=== PATIENT | male | born 1955 | race Caucasian/White ===

== ENCOUNTER 2021-06-01 07:14 | Day surgery (SDC) | payer BC, OTHER ==
[2021-06-01] MEDS ORDERED: fentaNYL 250 MCG/5 ML SDV ONE (08:10)
[2021-06-01] MEDS ORDERED: Propofol 200 MG/20 ML SDV ONE (08:10)
[2021-06-01] MEDS ORDERED: Bupivacaine 0.5% 10 ML SDV ONE (08:38)
[2021-06-01] MEDS ORDERED: Lidocaine 1% 20 ML MDV ONE (08:38)
[2021-06-01] MEDS ORDERED: ceFAZolin 2 GM in Premix Bag 1 BAG IV ONE (09:00)
[2021-06-01] MEDS ORDERED: Lactated Ringers 1,000 ML IV SCH (09:00)
[2021-06-01] MEDS ORDERED: Ketamine 500 mg/10 ML MDV ONE (09:49)
[2021-06-01] MEDS ORDERED: Morphine 2 MG/ML SYRINGE IVPUSH PRN (10:05)
[2021-06-01] MEDS ORDERED: Albuterol 0.083% 2.5 MG/3 ML Neb Soln NEB PRN (10:05)
[2021-06-01] MEDS ORDERED: Naloxone 0.4 MG/ML SDV IVPUSH PRN (10:05)
[2021-06-01] MEDS ORDERED: HYDROmorphone 1 MG/ML Syringe IVPUSH PRN (10:05)
[2021-06-01] MEDS ORDERED: fentaNYL 100 MCG/2 ML SDV IVPUSH PRN (10:05)
[2021-06-01] MEDS ORDERED: Metoclopramide 10 MG/2 ML SDV IVPUSH PRN (10:05)
[2021-06-01] MEDS ORDERED: Ondansetron 4 MG/2 ML SDV IVPUSH PRN (10:05)
[2021-06-01] MEDS ORDERED: Glycopyrrolate 0.2 MG/ML SDV ONE (10:49)
[2021-06-01] MEDS ORDERED: Dexamethasone 4 MG/ML 5 ML MDV ONE (10:49)
[2021-06-01] MEDS ORDERED: ePHEDrine 50 MG/ML SDV ONE (10:49)
[2021-06-01] MEDS ORDERED: Ondansetron 4 MG/2 ML SDV ONE (10:49)
[2021-06-01] MEDS ORDERED: Ketorolac 30 MG/ML SDV ONE (10:49)
[2021-06-01] MEDS ORDERED: Albuterol HFA 18 Gm Inhaler ONE (10:54)
[2021-06-01] MEDS ORDERED: HYDROmorphone 2 MG/ML Syringe ONE (11:22)
== END 2021-06-01 14:50 | disposition home or self-care (01) ==
LOC: MW.SDS 07:14
PROVIDERS: ATTEND Podiatrist Foot & Ankle Surgery
DX: S86.312A Strain of muscle(s) and tendon(s) of peroneal muscle group at lower leg level, left leg, initial encounter (principal); E11.40 Type 2 diabetes mellitus with diabetic neuropathy, unspecified; G47.30 Sleep apnea, unspecified; I45.10 Unspecified right bundle-branch block; K21.9 Gastro-esophageal reflux disease without esophagitis; I10 Essential (primary) hypertension; Z01.812 Encounter for preprocedural laboratory examination; Z20.822 Contact with and (suspected) exposure to COVID-19; Z79.4 Long term (current) use of insulin; Z79.84 Long term (current) use of oral hypoglycemic drugs; Z79.899 Other long term (current) drug therapy
CPT/HCPCS: 28200; 76000; 82947; 87635; J0131; J0690; J1100; J1170; J1885; J2370; J2405; J2704; J3010; J3490; J7120; 01470; J3535-GY; U0002

== ENCOUNTER 2022-03-08 07:55 | Day surgery (SDC) | payer BC, OTHER ==
[~2022-03-08 07:55] MED LIST: Bupivacaine 0.5% 30 ML SDV ONE; Lactated Ringers 1,000 ML IV SCH; Lidocaine 1% 20 ML MDV ONE
[2022-03-08] MEDS ORDERED: Ondansetron 4 MG/2 ML SDV IVPUSH PRN (09:33)
[2022-03-08] MEDS ORDERED: Albuterol 0.083% 2.5 MG/3 ML Neb Soln NEB PRN (09:33)
[2022-03-08] MEDS ORDERED: Metoclopramide 10 MG/2 ML SDV IVPUSH PRN (09:33)
[2022-03-08] MEDS ORDERED: HYDROmorphone 1 MG/ML Syringe IVPUSH PRN (09:33)
[2022-03-08] MEDS ORDERED: Morphine 2 MG/ML SYRINGE IVPUSH PRN (09:33)
[2022-03-08] MEDS ORDERED: Naloxone 0.4 MG/ML SDV IVPUSH PRN (09:33)
[2022-03-08] MEDS ORDERED: fentaNYL 50 MCG/ML SDV IVPUSH PRN (09:33)
[2022-03-08] MEDS ORDERED: ceFAZolin 2 GM in Premix Bag 1 BAG IV ONE (10:00)
[2022-03-08] MEDS ORDERED: Propofol 200 MG/20 ML SDV ONE (10:13)
[2022-03-08] MEDS ORDERED: fentaNYL 100 MCG/2 ML SDV ONE (10:13)
[2022-03-08] MEDS ORDERED: ePHEDrine 50 MG/ML SDV ONE (12:17)
[2022-03-08] MEDS ORDERED: Glycopyrrolate 0.2 MG/ML SDV ONE (12:17)
== END 2022-03-08 10:05 | disposition home or self-care (01) ==
LOC: MW.SDS 07:55
PROVIDERS: ATTEND Podiatrist Foot & Ankle Surgery
DX: E87.5 Hyperkalemia (principal); Z53.09 Procedure and treatment not carried out because of other contraindication; K21.9 Gastro-esophageal reflux disease without esophagitis; I10 Essential (primary) hypertension; E78.00 Pure hypercholesterolemia, unspecified; E11.40 Type 2 diabetes mellitus with diabetic neuropathy, unspecified; Z98.890 Other specified postprocedural states; Z88.8 Allergy status to other drugs, medicaments and biological substances
CPT/HCPCS: 36415; 84132; J7120; J2704; J3010; J3490